=== PATIENT | male | born 1965 | race Caucasian/White ===

== ENCOUNTER 2016-09-13 20:57 | Observation (INO) | payer OTHER ==
[2016-09-13] MEDS ORDERED: HYDROmorphone* 1 MG/ML 1 ML SYR IV ONE ×2 (21:25→23:19)
[2016-09-13] MEDS ORDERED: Ondansetron INJ* 2 MG/ML VIAL IV ONE (21:25)
[2016-09-13] MEDS ORDERED: NS 0.9% 1000 ML* 1,000 ML IV ONE (21:25)
[2016-09-13] MEDS ORDERED: Ondansetron INJ* 2 MG/ML VIAL ONE (21:42)
[2016-09-13 21:44] LABS: Hematocrit 44 % (42-52); Hemoglobin 14.8 g/dl (14.0-18.0); Mean Corpuscular HGB Conc 34 g/dl (31-36); Mean Corpuscular Hemoglobin 34 pg (27-31); Mean Corpuscular Volume 100 fL (80-94); Mean Platelet Volume 8 um3 (7.4-10.4); Red Blood Count 4.37 10^6/ul (4.0-5.4); Red Cell Distribution Width 13 % (10.5-15); White Blood Count 13.6 10^3/ul (3.5-10.8)
[2016-09-13 21:58] LABS: BUN/Creatinine Ratio 17.4 (8-20); Blood Urea Nitrogen 15 mg/dL (6-24); CO2 Carbon Dioxide 22 mmol/L (22-32); Chloride 107 mmol/L (101-111); Glucose 114 mg/dL (70-100); Sodium 137 mmol/L (133-145)
[2016-09-13 21:59] LABS: ALT 29 U/L (7-52); Albumin 4.3 g/dL (3.2-5.2); Alkaline Phosphatase 69 U/L (34-104); C Reactive Protein 1.43 mg/L (< 5.00); Calcium 9.4 mg/dL (8.6-10.3); EGFR African American 121.1 (>60); EGFR Non-African American 94.1 (>60); Lipase 24 U/L (11.0-82.0); Total Protein 7.3 g/dL (6.4-8.9)
[2016-09-13 22:00] LABS: Anion Gap 8 mmol/L (2-11)
[2016-09-13] MEDS ORDERED: Iohexol 300* (CONTRAST) 10 ML SDV IV ONE (22:13)
--- NOTE | 2016-09-13 22:52 | ED ---
Clarisa Sanchez Salem, scribed for Caio Hawk MD on 09/13/16 at 2125 . Abdominal Pain/Male - HPI Summary HPI Summary: Patient is a 50 y/o M who presents to the ED with diffuse intermittent waxing and waning sudden onset abd pain since 1300 this morning. Pt reports PMHx of diverticulosis. He states that ambulance ride aggravated pain. - History of Current Complaint Chief Complaint: EDAbdPain Stated Complaint: ABD PAIN Time Seen by Provider: 09/13/16 21:16 Hx Obtained From: Patient Onset/Duration: Sudden Onset, Lasting Hours, Still Present Timing: Intermittent Severity Initially: Moderate Severity Currently: Moderate Location: Diffuse Radiates: No Aggravating Factor(s): Movement Alleviating Factor(s): Position Associated Signs And Symptoms: Positive: Negative - Allergies/Home Medications Allergies/Adverse Reactions: Allergies Allergy/AdvReac Type Severity Reaction Status Date / Time Penicillins [PCN] Allergy Intermediate Rash Verified 12/06/15 15:09 PMH/Surg Hx/FS Hx/Imm Hx Endocrine/Hematology History: Denies: Hx Diabetes, Hx Thyroid Disease Cardiovascular History: Denies: Hx Hypertension Respiratory History: Reports: Hx Asthma - use inhaler and neb Denies: Hx Chronic Obstructive Pulmonary Disease (COPD) Comment Only: Other Respiratory Problems/Disorders - deenies need for written literature to quit GI History: Reports: Hx Diverticulosis, Other GI Disorders - diveriticulitis Denies: Hx Ulcer History: Denies: Hx Dialysis, Hx Renal Disease Musculoskeletal History: Reports: Hx Back Problems, Other Musculoskeletal History - Back pain Sensory History: Reports: Hx Contacts or Glasses Opthamlomology History: Reports: Hx Contacts or Glasses Neurological History: Reports: Hx Migraine, Other Neuro Impairments/Disorders - HX SUBDURAL HEMATOMA UNKNOWN DATE - Cancer History Cancer Type, Location and Year: FAMILY HISTORY - Surgical History Surgery Procedure, Year, and Place: Anal abscess drainage 89, 04, tonsillectomy , colonoscopy Hx Anesthesia Reactions: No Infectious Disease History: Denies: Hx Clostridium Difficile, Hx Hepatitis, Hx Human Immunodeficiency Virus (HIV), Hx of Known/Suspected MRSA, Hx Shingles, Hx Tuberculosis, Hx Known/ Suspected VRE, Hx Known/Suspected VRSA, History Other Infectious Disease, Traveled Outside the [place] in Last 30 Days - Family History Known Family History: Positive: Cardiac Disease - PATERNAL UNCLE, Other - CANCER - Social History Alcohol Use: Daily Alcohol Amount: a few beers daily Hx Substance Use: No Substance Use Type: Reports: None Substance Use Comment - Amount & Last Used: pain killers - migraines Hx Tobacco Use: Yes Smoking Status (MU): Light Every Day Tobacco Smoker Type: Cigarettes Amount Used/How Often: 3-4 cigs daily Length of Time of Smoking/Using Tobacco: 15 yrs Have You Smoked in the Last Year: Yes Review of Systems Constitutional: Negative Negative: Fever Positive: Abdominal Pain All Other Systems Reviewed And Are Negative: Yes Physical Exam Triage Information Reviewed: Yes Vital Signs On Initial Exam: Last Vital Signs 09/13/16 09/13/16 09/13/16 21:22 21:30 21:45 Temperature 97.6 F Pulse Rate 78 81 93 Respiratory 16 Rate Blood Pressure 157/104 126/82 (mmHg) O2 Sat by Pulse 100 100 98 Oximetry 09/13/16 09/13/16 21:46 22:00 Temperature Pulse Rate Respiratory 18 Rate Blood Pressure 126/82 (mmHg) O2 Sat by Pulse Oximetry Vital Signs Reviewed: Yes Appearance: Positive: Well-Appearing, No Pain Distress Skin: Positive: Warm, Skin Color Reflects Adequate Perfusion, Dry Head/Face: Positive: Normal Head/Face Inspection Eyes: Positive: Normal Neck: Positive: Supple, Nontender Respiratory/Lung Sounds: Positive: Clear to Auscultation, Breath Sounds Present Cardiovascular: Positive: RRR Abdomen Description: Positive: Guarding, Other: - Very tender, profusely. Rebound. Bowel Sounds: Positive: Present Musculoskeletal: Positive: Normal Neurological: Positive: Normal Psychiatric: Positive: Normal, Affect/Mood Appropriate Diagnostics - Vital Signs Vital Signs Temp Pulse Resp BP Pulse Ox 09/13/16 22:00 126/82 09/13/16 21:46 18 09/13/16 21:45 97.6 F 93 16 126/82 98 09/13/16 21:30 81 157/104 100 09/13/16 21:22 78 100 - Laboratory Lab Results: Lab Results 09/13/16 09/13/16 09/13/16 Range/Units 21:37 21:37 22:12 WBC 13.6 H (3.5-10.8) 10^3/ul RBC 4.37 (4.0-5.4) 10^6/ul Hgb 14.8 (14.0-18.0) g/dl Hct 44 (42-52) % MCV 100 H (80-94) fL MCH 34 H (27-31) pg MCHC 34 (31-36) g/dl RDW 13 (10.5-15) % Plt Count 261 (150-450) 10^3/ul MPV 8 (7.4-10.4) um3 Neut % (Auto) 74.1 (38-83) % Lymph % (Auto) 16.9 L (25-47) % King % (Auto) 7.2 (1-9) % Eos % (Auto) 1.2 (0-6) % Baso % (Auto) 0.6 (0-2) % Absolute Neuts (auto) 10.1 H (1.5-7.7) 10^3/ul Absolute Lymphs (auto) 2.3 (1.0-4.8) 10^3/ul Absolute Monos (auto) 1.0 H (0-0.8) 10^3/ul Absolute Eos (auto) 0.2 (0-0.6) 10^3/ul Absolute Basos (auto) 0.1 (0-0.2) 10^3/ul Absolute Nucleated RBC 0 10^3/ul Nucleated RBC % 0 Sodium 137 (133-145) mmol/L Potassium TNP Chloride 107 (101-111) mmol/L Carbon Dioxide 22 (22-32) mmol/L Anion Gap 8 (2-11) mmol/L BUN 15 (6-24) mg/dL Creatinine 0.86 (0.67-1.17) mg/dL Est GFR ( Amer) 121.1 (>60) Est GFR (Non-Af Amer) 94.1 (>60) BUN/Creatinine Ratio 17.4 (8-20) Glucose 114 H (70-100) mg/dL Lactic Acid 0.7 (0.5-2.0) mmol/L Calcium 9.4 (8.6-10.3) mg/dL Total Bilirubin 0.80 (0.2-1.0) mg/dL AST TNP ALT 29 (7-52) U/L Alkaline Phosphatase 69 (34-104) U/L C-Reactive Protein 1.43 (< 5.00) mg/L Total Protein 7.3 (6.4-8.9) g/dL Albumin 4.3 (3.2-5.2) g/dL Globulin 3.0 (2-4) g/dL Albumin/Globulin Ratio 1.4 (1-3) Lipase 24 (11.0-82.0) U/L /09/23 Range/Units 22:12 WBC (3.5-10.8) 10^3/ul RBC (4.0-5.4) 10^6/ul Hgb (14.0-18.0) g/dl Hct (42-52) % MCV (80-94) fL MCH (27-31) pg MCHC (31-36) g/dl RDW (10.5-15) % Plt Count (150-450) 10^3/ul MPV (7.4-10.4) um3 Neut % (Auto) (38-83) % Lymph % (Auto) (25-47) % King % (Auto) (1-9) % Eos % (Auto) (0-6) % Baso % (Auto) (0-2) % Absolute Neuts (auto) (1.5-7.7) 10^3/ul Absolute Lymphs (auto) (1.0-4.8) 10^3/ul Absolute Monos (auto) (0-0.8) 10^3/ul Absolute Eos (auto) (0-0.6) 10^3/ul Absolute Basos (auto) (0-0.2) 10^3/ul Absolute Nucleated RBC 10^3/ul Nucleated RBC % Sodium (133-145) mmol/L Potassium 3.6 Chloride (101-111) mmol/L Carbon Dioxide (22-32) mmol/L Anion Gap (2-11) mmol/L BUN (6-24) mg/dL Creatinine (0.67-1.17) mg/dL Est GFR ( Amer) (>60) Est GFR (Non-Af Amer) (>60) BUN/Creatinine Ratio (8-20) Glucose (70-100) mg/dL Lactic Acid (0.5-2.0) mmol/L Calcium (8.6-10.3) mg/dL Total Bilirubin (0.2-1.0) mg/dL AST 24 ALT (7-52) U/L Alkaline Phosphatase (34-104) U/L C-Reactive Protein (< 5.00) mg/L Total Protein (6.4-8.9) g/dL Albumin (3.2-5.2) g/dL Globulin (2-4) g/dL Albumin/Globulin Ratio (1-3) Lipase (11.0-82.0) U/L Result Diagrams: 09/13/16 21:37 09/13/16 22:12 Lab Statement: Any lab studies that have been ordered have been reviewed, and results considered in the medical decision making process. - CT ABD/PELVIS CT Interpretation Completed By: Radiologist - IMPRESSION: see EMR pending radiology reading. Abdominal Pain Fem Course/Dx - Course Course Of Treatment: Mr. Witt presented with seemingly severe diffuse abdominal pain. HE was tender diffusely with guarding and rebound. He was given fluids and pain meds, labs have been sent and he is awaiting CT. His vitals have been stable. - Diagnoses Provider Diagnoses: Abdominal pain Discharge - Discharge Plan Condition: Stable Disposition: OTHER Discharge Disposition Comment: Signed out to Dr. Young at shift change. Referrals: Colin Jewell MD [Primary Care Provider] - The documentation as recorded by the Clarisa whyte Salem accurately reflects the service I personally performed and the decisions made by me, Caio Hawk MD.
[2016-09-14] MEDS ORDERED: HYDROmorphone* 1 MG/ML 1 ML SYR IV SLOW PU ONE (02:07)
[2016-09-14] MEDS ORDERED: Ondansetron INJ* 2 MG/ML VIAL IV ONE (02:07)
--- NOTE | 2016-09-14 02:30 | HP ---
H&P (Free Text) History and Physical: PCP: Ron Jewell MD Date/Time of Evaluation: 4185 CC: abdominal pain HPI: Mr Witt is a 50YO male HX diverticulitis presenting with LLQ abdominal pain onset quickly around 1900. The pain is sharp, worst in LLQ, associated with some mild nausea, but no F/C, diarrhea, emesis, sweats, chest pain, SOB, or other issues. He states he had a normal bowel movement before lunch and another small one around 1700 that time with a small amount of bright red blood on the toilet tissue, but no black stool or discoloration of toilet water. He has received 3 doses of IV hydromorphone which take his pain from a sharp 10/10 to a dull 5/10. Palpation and movement exacerbate the pain. PMedHx diverticulosis/diverticulitis asthma HTN migraines Ambulatory Orders Nursing to reconcile. HYDROcodone/ACETAMIN 5-325 MG* [[place] 5-325 TAB*] 1 tab PO Q4H PRN #12 tab MDD 6 tab 08/20/15 Albuterol 2.5MG/3ML (0.083%)* [Ventolin 2.5 MG/3 ML NEB.ALISIA*] 2.5 mg INH Q4H PRN 12/06/15 Albuterol HFA INHALER* [Ventolin HFA Inhaler*] 2 puff INH Q4H PRN 12/06/15 Azithromycin TAB* [Zithromax TAB (Z-MILTON) 250 mg #6 tabs] 250 mg PO ONCE #4 tab 12/06/15 Ibuprofen TAB* [Advil TAB*] 400 mg PO Q6H PRN 12/06/15 oxyCODONE/Acetamin 5/325 MG* [Percocet 5/325 TAB*] 1 tab PO Q4H PRN #15 tab MDD 6 12/06/15 predniSONE TAB* [Deltasone TAB*] 40 mg PO DAILY #8 tab 12/06/15 Allergies Penicillins [PCN] Allergy (Intermediate, Verified 12/06/15 15:09) Rash PSurgHx I&D bahman-rectal abscess x2 SocHx: 1/4PPD cigarettes, minimal alcohol, denies recreational drugs; lives with his female significant other; works for [employer]; full code status FamHx: Mother: colon CA; Father: alcoholic cirrhosis ROS: as above, otherwise reviewed and all were negative Constitutional: NAD, normally developed, well-nourished male vitals: Vital Signs Temp 36.4 C 09/13/16 21:45 Pulse 77 09/14/16 02:00 Resp 15 09/14/16 02:18 BP 135/95 09/14/16 02:00 Pulse Ox 98 09/14/16 02:00 Intake & Output 09/13/16 09/13/16 09/14/16 11:59 23:59 11:59 Weight 74.843 kg Other: Date of Last Bowel t Movement HEENM: atraumatic; sclera/conjunctiva: non-icteric/clear; hearing: clinically intact; oropharynx: clear, mucosa moist Neck: soft tissue: non-tender; thyroid: normal Pulmonary: clear to auscultation bilaterally, good aeration, no accessory muscle use CV: RR/RR, normal S1S2, no carotid bruit, no jugular venous distention, 2+ B DP/ PT, no edema Abdominal: soft, non-distended, diffusely moderately tender worst in LLQ, no rebound/guarding/rigidity, normoactive bowel sounds, no hepatosplenomegaly or masses, no costovertebral angle tenderness Musculoskeletal: general: grossly intact; gait: stable Integumental: normal appearance and texture of exposed skin Psychiatric orientation: AA&O to PPS affect: calm mood: cooperative eye contact: good content: reliable responses: timely insight: good Testing: Lab Results 09/13/16 09/13/16 09/13/16 Range/Units 21:37 21:37 22:12 WBC 13.6 H (3.5-10.8) 10^3/ul RBC 4.37 (4.0-5.4) 10^6/ul Hgb 14.8 (14.0-18.0) g/dl Hct 44 (42-52) % MCV 100 H (80-94) fL MCH 34 H (27-31) pg MCHC 34 (31-36) g/dl RDW 13 (10.5-15) % Plt Count 261 (150-450) 10^3/ul MPV 8 (7.4-10.4) um3 Neut % (Auto) 74.1 (38-83) % Lymph % (Auto) 16.9 L (25-47) % [place] % (Auto) 7.2 (1-9) % Eos % (Auto) 1.2 (0-6) % Baso % (Auto) 0.6 (0-2) % Absolute Neuts (auto) 10.1 H (1.5-7.7) 10^3/ul Absolute Lymphs (auto) 2.3 (1.0-4.8) 10^3/ul Absolute Monos (auto) 1.0 H (0-0.8) 10^3/ul Absolute Eos (auto) 0.2 (0-0.6) 10^3/ul Absolute Basos (auto) 0.1 (0-0.2) 10^3/ul Absolute Nucleated RBC 0 10^3/ul Nucleated RBC % 0 Sodium 137 (133-145) mmol/L Potassium TNP Chloride 107 (101-111) mmol/L Carbon Dioxide 22 (22-32) mmol/L Anion Gap 8 (2-11) mmol/L BUN 15 (6-24) mg/dL Creatinine 0.86 (0.67-1.17) mg/dL Est GFR ( Amer) 121.1 (>60) Est GFR (Non-Af Amer) 94.1 (>60) BUN/Creatinine Ratio 17.4 (8-20) Glucose 114 H (70-100) mg/dL Lactic Acid 0.7 (0.5-2.0) mmol/L Calcium 9.4 (8.6-10.3) mg/dL Total Bilirubin 0.80 (0.2-1.0) mg/dL AST TNP ALT 29 (7-52) U/L Alkaline Phosphatase 69 (34-104) U/L C-Reactive Protein 1.43 (< 5.00) mg/L Total Protein 7.3 (6.4-8.9) g/dL Albumin 4.3 (3.2-5.2) g/dL Globulin 3.0 (2-4) g/dL Albumin/Globulin Ratio 1.4 (1-3) Lipase 24 (11.0-82.0) U/L 09/13/16 Range/Units 22:12 WBC (3.5-10.8) 10^3/ul RBC (4.0-5.4) 10^6/ul Hgb (14.0-18.0) g/dl Hct (42-52) % MCV (80-94) fL MCH (27-31) pg MCHC (31-36) g/dl RDW (10.5-15) % Plt Count (150-450) 10^3/ul MPV (7.4-10.4) um3 Neut % (Auto) (38-83) % Lymph % (Auto) (25-47) % [place] % (Auto) (1-9) % Eos % (Auto) (0-6) % Baso % (Auto) (0-2) % Absolute Neuts (auto) (1.5-7.7) 10^3/ul Absolute Lymphs (auto) (1.0-4.8) 10^3/ul Absolute Monos (auto) (0-0.8) 10^3/ul Absolute Eos (auto) (0-0.6) 10^3/ul Absolute Basos (auto) (0-0.2) 10^3/ul Absolute Nucleated RBC 10^3/ul Nucleated RBC % Sodium (133-145) mmol/L Potassium 3.6 Chloride (101-111) mmol/L Carbon Dioxide (22-32) mmol/L Anion Gap (2-11) mmol/L BUN (6-24) mg/dL Creatinine (0.67-1.17) mg/dL Est GFR ( Amer) (>60) Est GFR (Non-Af Amer) (>60) BUN/Creatinine Ratio (8-20) Glucose (70-100) mg/dL Lactic Acid (0.5-2.0) mmol/L Calcium (8.6-10.3) mg/dL Total Bilirubin (0.2-1.0) mg/dL AST 24 ALT (7-52) U/L Alkaline Phosphatase (34-104) U/L C-Reactive Protein (< 5.00) mg/L Total Protein (6.4-8.9) g/dL Albumin (3.2-5.2) g/dL Globulin (2-4) g/dL Albumin/Globulin Ratio (1-3) Lipase (11.0-82.0) U/L CT abd/pel W, personally reviewed: IMPRESSION: Questionable mild small bowel ileus. Impression: 50M presenting with intractable abdominal pain of unclear etiology DIAGNOSIS & PLAN Primary intractable abdominal pain : HX diverticulitis, NOT seen on current CT abd/pel W - only ? ileus, awaiting in-house read : pain control : no indication for ABX at this time : IVFs : trend leukocytosis : Meli Puente MD surgery aware of patient, but not consulted as no surgical indication currently : supportive care Secondary asthma : albuterol nebs PRN HTN : not currently on medications : monitor migraines : no acute issues Admission Rational: observation for intractable pain DVTp: PEPE Code Status: full HCP: significant other: Elicia Starkey
[2016-09-14] MEDS ORDERED: Ondansetron INJ* 2 MG/ML VIAL IV PRN (02:53)
[2016-09-14] MEDS ORDERED: Acetaminophen TAB* 325 MG PO PRN (02:53)
[2016-09-14] MEDS ORDERED: Nicotine Inhaler* 10 MG AMP INH PRN (02:53)
[2016-09-14] MEDS ORDERED: Melatonin (NF) 3 MG TAB PO PRN (02:53)
[2016-09-14] MEDS ORDERED: Albuterol 2.5 MG/3 ML NEB.SOL* (0.083%) INH PRN (02:53)
[2016-09-14 03:42] LABS: Urine Bilirubin Negative (Negative); Urine Glucose Negative (Negative); Urine Nitrite Negative (Negative)
[2016-09-14] MEDS: HYDROmorphone* 1 MG/ML 1 ML SYR IV PRN ×4 (04:07→10:08)
[2016-09-14 05:10] LABS: Hematocrit 40 % (42-52); Hemoglobin 13.2 g/dl (14.0-18.0); Mean Corpuscular HGB Conc 33 g/dl (31-36); Mean Corpuscular Hemoglobin 34 pg (27-31); Mean Corpuscular Volume 101 fL (80-94); Mean Platelet Volume 8 um3 (7.4-10.4); Red Blood Count 3.91 10^6/ul (4.0-5.4); Red Cell Distribution Width 13 % (10.5-15); White Blood Count 10.2 10^3/ul (3.5-10.8)
[2016-09-14] MEDS: Omeprazole CAP* 20 MG PO SCH (06:03)
--- NOTE | 2016-09-14 08:00 | RAD ---
CLINICAL HISTORY: Diffuse abdominal pain COMPARISON: December 06, 2015 TECHNIQUE: Multiple contiguous axial CT scans were obtained of the abdomen and pelvis after the administration of intravenous contrast. Coronal and sagittal multiplanar reformations are submitted for review. Oral contrast was administered. Delayed images were obtained through the abdomen and pelvis. FINDINGS: LUNG BASES: The lung bases are clear. LIVER: There is a stable small low-attenuation lesion of the right lobe of liver. BILE DUCTS: There is no intrahepatic or extrahepatic biliary dilatation. GALLBLADDER: The gallbladder is normal, without pericholecystic inflammatory change. PANCREAS: The pancreas is normal, without mass or ductal dilatation. SPLEEN: Normal in size and appearance. UPPER GI TRACT: Evaluation of the gastrointestinal tract is limited by incomplete gastric distention. The upper GI tract is unremarkable. SMALL BOWEL AND MESENTERY: There is mild distention of small bowel without transition point, without dilatation. COLON: The colon is normal in contour, course, caliber. There is no pericolonic inflammatory change. There is a tubular, vermiform, hollow viscus that is blind ending, and originates from the cecum, consistent with a normal appendix. There is no periappendiceal inflammatory change. This is best seen on axial images 42 through 50 ADRENALS: Normal bilaterally. KIDNEYS: The kidneys are normal in shape, size, contour, and axis. There is no hydronephrosis or nephrolithiasis. BLADDER: The bladder is smooth in contour. PELVIC ORGANS: The prostate gland is normal. The seminal vesicles are symmetric. AORTA: The aorta is normal. IVC: Unremarkable LYMPH NODES: There is no lymphadenopathy by size criteria. ABDOMINAL WALL: There is no evidence for abdominal wall hernia. BONES AND SOFT TISSUES: There are mild diffuse degenerative changes. OTHER: None IMPRESSION: MILD DISTENTION OF SMALL BOWEL WITHOUT DILATATION OR TRANSITION POINT. THIS IS OF UNCERTAIN CLINICAL SIGNIFICANCE, BUT MAY REFLECT MILD ILEUS.
[2016-09-14] MEDS: Docusate CAP* 100 MG PO SCH ×2 (08:13→20:41)
--- NOTE | 2016-09-14 10:25 | ED ---
Judson Sanchez Rebecca, debbie for Ester Young MD on 09/14/16 at 0134 . Progress - Progress Note Progress Note: Pt was signed out from Dr. Hawk at 2300, pending CT Abd/Pel. CT Abd/Pel reveals: Questionable mild small bowel ileus. Re-Evaluation - Re-Evaluation First Eval Re-Evaluation Time: 02:00 Change: Improved Comment: Thoroughly explained CT Abd/Pel results with the pt and that the results are a preliminary report. Explained that typically patients with similar Dx are admitted. Pt confirms that he has not been vomiting. Pain is significantly improved from where it was previously, though it is still severe. Pt states he would favor admission, though he does not want surgery. Explained that a consult with the surgeon must be done first. Course/Dx - Course Course Of Treatment: Pt was signed out from Dr. Hawk at 2300. CT Abd/Pel reveals questionable mild small bowel ileus. Discussed care of pt with Dr. Puente who advised admission to hospitalist services and will consult in the morning. Discussed care of pt with Dr. Hari Taylor who accepts pt for admission. Pt will be admitted to hospitalist services with Dx of abdominal pain and ileus of small bowel. - Diagnoses Provider Diagnoses: Abdominal pain, Small bowel Ileus - Provider Notifications Discussed Care Of Patient With: Niko Puente Time Discussed With Above Provider: 02:08 Instructed by Provider To: Other - Advised admission to hospitalist services and will consult in the morning. Discussed care of pt with Dr. Hari Taylor at 0213 who accepts pt for admission. The documentation as recorded by the Judson whyte Rebecca accurately reflects the service I personally performed and the decisions made by , Ester Young MD.
[2016-09-14] MEDS ORDERED: Ciprofloxacin 400MG IVPREMIX(* 400 MG/200 ML BAG IVPB SCH (12:00)
--- NOTE | 2016-09-14 12:04 | PN ---
Subjective Date of Service: 09/14/16 Interval History: Little if any change in lower abdominal pain. Relieved by IV hydromorphone. No BM since admission. Objective Active Medications: Acetaminophen (Tylenol Tab*) 650 mg PO Q6H PRN PRN Reason: FEVER/PAIN Albuterol (Ventolin 2.5 Mg/3 Ml Neb.Marichuy*) 2.5 mg INH Q2H PRN PRN Reason: SOB/WHEEZING Docusate Sodium (Colace Cap*) 200 mg PO BID [facility] Last Admin: 09/14/16 08:13 Dose: 200 mg Hydromorphone HCl (Dilaudid Iv*) 1 mg IV Q2H PRN PRN Reason: PAIN Last Admin: 09/14/16 10:08 Dose: 1 mg Ciprofloxacin/Dextrose (Cipro 400 Mg Ivpremix(*)) 400 mg in 200 mls @ 200 mls/ hr IVPB Q12H [facility] Metronidazole/Sodium Chloride (Flagyl 500 Mg Ivpb*) 500 mg in 100 mls @ 100 mls /hr IVPB Q8H [facility] Potassium Chloride/Dextrose (D5w 1/2 Ns Kcl 20 Meq 1000 Ml*) 1,000 mls @ 100 mls/hr IV PER RATE [facility] Melatonin (Melatonin (Nf)) 3 mg PO BEDTIME PRN; Protocol PRN Reason: Sleep Nicotine (Nicotine Inhaler*) 10 mg INH Q2H PRN PRN Reason: CRAVING Omeprazole (Prilosec Cap*) 20 mg PO DAILY@0600 [facility] Last Admin: 09/14/16 06:03 Dose: 20 mg Ondansetron HCl (Zofran Inj*) 4 mg IV Q6H PRN PRN Reason: NAUSEA Vital Signs 09/14/16 09/14/16 09/14/16 02:30 03:32 03:57 Temperature 97.8 F Pulse Rate 76 73 Respiratory 20 20 Rate Blood Pressure 128/94 153/93 (mmHg) O2 Sat by Pulse 95 99 Oximetry 09/14/16 09/14/16 09/14/16 04:07 04:20 05:07 Temperature 97.8 F Pulse Rate 73 Respiratory 20 20 16 Rate Blood Pressure 153/93 (mmHg) O2 Sat by Pulse 99 Oximetry 09/14/16 09/14/16 09/14/16 06:04 07:04 07:16 Temperature 97.9 F Pulse Rate 73 Respiratory 20 17 17 Rate Blood Pressure 137/94 (mmHg) O2 Sat by Pulse 99 Oximetry 09/14/16 09/14/16 09/14/16 07:52 08:13 09:13 Temperature Pulse Rate Respiratory 17 16 16 Rate Blood Pressure (mmHg) O2 Sat by Pulse Oximetry 09/14/16 09/14/16 09/14/16 10:08 11:08 11:27 Temperature 97.4 F Pulse Rate 71 Respiratory 16 16 Rate Blood Pressure 142/93 (mmHg) O2 Sat by Pulse 100 Oximetry Oxygen Devices in Use Now: None Appearance: Alert, partly up in bed. In good spirits. Looks comfortable. Eyes: No Scleral Icterus Ears/Nose/Mouth/Throat: Clear Oropharnyx, Mucous Membranes Moist Neck: NL Appearance and Movements; NL JVP, No Thyroid Enlargement, Masses Respiratory: Symmetrical Chest Expansion and Respiratory Effort, Clear to Auscultation, Clear to Percussion Abdominal: No Hepatosplenomegaly, - - Soft, mild lower abdominal tenderness. Nl BS. No mass. Extremities: No Edema, No Clubbing, Cyanosis, - Skin: No Rash or Ulcers, No Nodules or Sclerosis, - Neurological: Alert and Oriented x 3, NL Sensation Result Diagrams: 09/14/16 04:25 09/13/16 22:12 Additional Lab and Data: Lab Results 09/13/16 09/13/16 09/13/16 Range/Units 21:37 21:37 22:12 WBC 13.6 H (3.5-10.8) 10^3/ul RBC 4.37 (4.0-5.4) 10^6/ul Hgb 14.8 (14.0-18.0) g/dl Hct 44 (42-52) % MCV 100 H (80-94) fL MCH 34 H (27-31) pg MCHC 34 (31-36) g/dl RDW 13 (10.5-15) % Plt Count 261 (150-450) 10^3/ul MPV 8 (7.4-10.4) um3 Neut % (Auto) 74.1 (38-83) % Lymph % (Auto) 16.9 L (25-47) % [place] % (Auto) 7.2 (1-9) % Eos % (Auto) 1.2 (0-6) % Baso % (Auto) 0.6 (0-2) % Absolute Neuts (auto) 10.1 H (1.5-7.7) 10^3/ul Absolute Lymphs (auto) 2.3 (1.0-4.8) 10^3/ul Absolute Monos (auto) 1.0 H (0-0.8) 10^3/ul Absolute Eos (auto) 0.2 (0-0.6) 10^3/ul Absolute Basos (auto) 0.1 (0-0.2) 10^3/ul Absolute Nucleated RBC 0 10^3/ul Nucleated RBC % 0 Sodium 137 (133-145) mmol/L Potassium TNP Chloride 107 (101-111) mmol/L Carbon Dioxide 22 (22-32) mmol/L Anion Gap 8 (2-11) mmol/L BUN 15 (6-24) mg/dL Creatinine 0.86 (0.67-1.17) mg/dL Est GFR ( Amer) 121.1 (>60) Est GFR (Non-Af Amer) 94.1 (>60) BUN/Creatinine Ratio 17.4 (8-20) Glucose 114 H (70-100) mg/dL Lactic Acid 0.7 (0.5-2.0) mmol/L Calcium 9.4 (8.6-10.3) mg/dL Total Bilirubin 0.80 (0.2-1.0) mg/dL AST TNP ALT 29 (7-52) U/L Alkaline Phosphatase 69 (34-104) U/L C-Reactive Protein 1.43 (< 5.00) mg/L Total Protein 7.3 (6.4-8.9) g/dL Albumin 4.3 (3.2-5.2) g/dL Globulin 3.0 (2-4) g/dL Albumin/Globulin Ratio 1.4 (1-3) Lipase 24 (11.0-82.0) U/L 09/13/16 Range/Units 22:12 WBC (3.5-10.8) 10^3/ul RBC (4.0-5.4) 10^6/ul Hgb (14.0-18.0) g/dl Hct (42-52) % MCV (80-94) fL MCH (27-31) pg MCHC (31-36) g/dl RDW (10.5-15) % Plt Count (150-450) 10^3/ul MPV (7.4-10.4) um3 Neut % (Auto) (38-83) % Lymph % (Auto) (25-47) % [place] % (Auto) (1-9) % Eos % (Auto) (0-6) % Baso % (Auto) (0-2) % Absolute Neuts (auto) (1.5-7.7) 10^3/ul Absolute Lymphs (auto) (1.0-4.8) 10^3/ul Absolute Monos (auto) (0-0.8) 10^3/ul Absolute Eos (auto) (0-0.6) 10^3/ul Absolute Basos (auto) (0-0.2) 10^3/ul Absolute Nucleated RBC 10^3/ul Nucleated RBC % Sodium (133-145) mmol/L Potassium 3.6 Chloride (101-111) mmol/L Carbon Dioxide (22-32) mmol/L Anion Gap (2-11) mmol/L BUN (6-24) mg/dL Creatinine (0.67-1.17) mg/dL Est GFR ( Amer) (>60) Est GFR (Non-Af Amer) (>60) BUN/Creatinine Ratio (8-20) Glucose (70-100) mg/dL Lactic Acid (0.5-2.0) mmol/L Calcium (8.6-10.3) mg/dL Total Bilirubin (0.2-1.0) mg/dL AST 24 ALT (7-52) U/L Alkaline Phosphatase (34-104) U/L C-Reactive Protein (< 5.00) mg/L Total Protein (6.4-8.9) g/dL Albumin (3.2-5.2) g/dL Globulin (2-4) g/dL Albumin/Globulin Ratio (1-3) Lipase (11.0-82.0) U/L Assess/Plan/Problems-Billing Assessment: - Patient Problems (1) Diverticulitis Current Visit: No Status: Acute Priority: High Onset Date: 04/18/14 Comment: Hx of perhaps 4 prior episodes diverticulitis. Colocoscopy at [facility] in past showed diverticulosis, also had tubular adenoma resected. Although the pain location seems different to the patient, it may simply be that a different area of his colon is involved than before. Start cipro/metro . If he responds to this he can go home on oral antibiotics. (2) Sepsis Current Visit: No Status: Acute Priority: High Onset Date: 01/27/14 Comment: - Secondary to diverticulitis. - Improving - afebrile, tachycardia is resolved. (3) Tobacco abuse Current Visit: No Status: Acute Code(s): Z72.0 - TOBACCO USE SNOMED Code(s ): 491428235 Comment: - Continue nicotine inhaler PRN Pt advised to quit smoking and avoid second hand smoke. (4) Asthma Current Visit: No Status: Chronic Code(s): J45.909 - UNSPECIFIED ASTHMA, UNCOMPLICATED SNOMED Code(s): 437806982 Comment: Albuterol neb PRN.
[2016-09-14] MEDS: Morphine INJ* 4 MG/ML 1 ML SYRINGE IV PRN ×4 (12:18→21:30)
[2016-09-14] MEDS: D5W 1/2 NS KCl 20 Meq 1000 ML* 1,000 ML IV SCH (12:18)
[2016-09-14] MEDS: metroNIDAZOLE IV 500 MG/100ML* 500 MG/100 ML BAG IVPB SCH ×2 (12:19→20:41)
[2016-09-14] MEDS: Ciprofloxacin 400MG IVPREMIX(* 400 MG/200 ML BAG IVPB SCH (15:12)
[2016-09-15] MEDS: Morphine INJ* 4 MG/ML 1 ML SYRINGE IV PRN ×2 (01:02→04:09)
[2016-09-15] MEDS: D5W 1/2 NS KCl 20 Meq 1000 ML* 1,000 ML IV SCH (02:38)
[2016-09-15] MEDS: Ciprofloxacin 400MG IVPREMIX(* 400 MG/200 ML BAG IVPB SCH (02:38)
[2016-09-15] MEDS ORDERED: Morphine INJ* 2 MG/ML 1 ML SYRINGE IV ONE (02:50)
[2016-09-15] MEDS: metroNIDAZOLE IV 500 MG/100ML* 500 MG/100 ML BAG IVPB SCH ×2 (04:23→12:06)
[2016-09-15] MEDS: Omeprazole CAP* 20 MG PO SCH (06:38)
[2016-09-15] MEDS ORDERED: Morphine INJ* 10 MG/ML 1 ML SYRINGE ONE (07:23)
[2016-09-15] MEDS ORDERED: Morphine INJ* 2 MG/ML 1 ML SYRINGE IV PRN (07:25)
[2016-09-15] MEDS ORDERED: Morphine INJ* 10 MG/ML 1 ML SYRINGE IV PRN ×2 (07:26→07:27)
[2016-09-15] MEDS ORDERED: Morphine INJ* 10 MG/ML 1 ML SYRINGE IV ONE (09:10)
[2016-09-15] MEDS: Docusate CAP* 100 MG PO SCH (09:18)
--- NOTE | 2016-09-15 09:35 | RAD ---
HISTORY: Abdominal pain COMPARISONS: CT dated September 13, 2016 VIEWS: Frontal views of the abdomen. FINDINGS: BOWEL: There is a nonobstructive bowel gas pattern. Oral contrast is noted within the colon CALCULI: There are no abnormal calculi. BONES AND SOFT TISSUES: There are no osseous abnormalities. OTHER FINDINGS: The lung bases are clear. There is no subphrenic gas. IMPRESSION: NONOBSTRUCTIVE BOWEL GAS PATTERN. ORAL CONTRAST IS NOTED WITHIN THE COLON.
[2016-09-15 12:17] VITALS: BP 130/83
[2016-09-15] MEDS ORDERED: Morphine INJ* 4 MG/ML 1 ML SYRINGE IV PRN (15:00)
--- NOTE | 2016-09-15 15:01 | PN ---
"Progress Note - Progress Note Date of Service: 09/15/16 Note: Search Terms: adelso gee, 1965 Search Date: 09/15/2016 02:59:07 PM The Drug Utilization Report below displays all of the controlled substance prescriptions, if any, that your patient has filled in the last twelve months. The information displayed on this report is compiled from pharmacy submissions to the Department, and accurately reflects the information as submitted by the pharmacies. This report was requested by: Tay Cueva | Reference #: [id number] Others' Prescriptions Patient Name: Adelso Gee Date: 1965 Address: [address] [place] [address] Sex: Male Rx Written Rx Dispensed Drug Quantity Days Supply Prescriber Name 12/06/2015 12/07/2015 oxycodone-acetaminophen 5-325 mg tablet 15 3 Rodo Kiser MD"
--- NOTE | 2016-09-16 03:52 | DS ---
CC: Dr. Jewell * DISCHARGE SUMMARY: DATE OF ADMISSION: DATE OF DISCHARGE: 09/15/16 HISTORY: This 50-year-old man presented with sudden onset of abdominal pain after dinner, about 7 p.m. This was described initially in the left lower quadrant, although when I saw him, it was in the lower abdomen. He was given IV hydromorphone several repeated doses and IV morphine. He has a history of diverticulitis in the past, several occurrences; however, CT scan of the abdomen and pelvis did not show any evidence of diverticulitis. There was mild distension of the small bowel without dilatation or transition point of uncertain clinical significance. He had no emesis or distension and I do not think he had ileus or even partial obstruction. The appendix was visualized on the scan. The patient had oral contrast for the study. His white count was elevated at 13.6. It came down to 10.2 the next morning. He had not received any antibiotics at all at that time. I did start him on antibiotics which he had one day; however, taking into account a CRP of 1.43 on admission, the abrupt onset of the pain, and the fact that the pain was of different character and location than his previous episodes of diverticulitis, I think it might be best to observe him off antibiotics for a period of time. On the day of discharge, he said the pain was down to level of 5. He seemed much more comfortable. There was minimal if any tenderness. I have transmitted a prescription for 10 oxycodone. He will make an appointment with his PCP within 1 week. DISCHARGE DIAGNOSES: 1. Abdominal pain with a history of diverticulitis in the past. 2. Tobacco abuse. 3. Asthma. DISCHARGE MEDICATIONS: 1. Oxycodone 5 mg every 4 hours p.r.n., dispensed 10. 2. Albuterol inhaler 2 puffs every 4 hours p.r.n. 3. Ibuprofen 800 mg every 6 hours p.r.n. [id number]/[facility] #: [id number] [facility]
== END 2016-09-15 15:15 | disposition home or self-care (01) ==
LOC: ED 20:57 → SSU 09-14 02:25 → INTOOBSV 09-15 07:56 → OBSVTOIN 09-15 07:56
PROVIDERS: ADMIT Hospitalist; ATTEND Internal Medicine
DX: R10.32 Left lower quadrant pain (principal); J45.909 Unspecified asthma, uncomplicated; I10 Essential (primary) hypertension; K57.90 Diverticulosis of intestine, part unspecified, without perforation or abscess without bleeding; F17.210 Nicotine dependence, cigarettes, uncomplicated; Z88.0 Allergy status to penicillin; Z79.899 Other long term (current) drug therapy
CPT/HCPCS: 36415; 74000; 74177; 80053; 81003; 83605; 83690; 85025; 86140; 94760; 96365; 96366; 96367; 96375; 96376; 99284; A9270-GY; G0378; J0744; J1170; J2270; J2405; Q9967

== ENCOUNTER 2016-12-27 12:35 | Emergency (ER) | payer OTHER ==
[2016-12-27 13:12] VITALS: BP 130/83
--- NOTE | 2016-12-27 13:26 | UC ---
Abdominal Pain Male HPI - HPI Summary HPI Summary: SUDDEN ONSET OF LLQ ABDOMINAL PAIN YESTERDAY. HAS H/O DIVERTICULITIS BUT THIS FEELS DIFFERENT. DENIES NAUSEA. PAIN IS RADIATING TO LEFT LOW BACK. LAST BM THIS MORNING WAS HARD. NO FEVER. OF NOTE PT WAS ADM[place] [facility] [place] FOR INTRACTABLE ABDOMINAL PAIN. - History of Current Complaint Chief Complaint: UCGU Stated Complaint: ABD PAIN Time Seen by Provider: 12/27/16 13:14 Hx Obtained From: Patient Onset/Duration: Sudden Onset, Lasting Days - 1 DAY, Still Present Timing: Constant Severity Initially: Moderate Severity Currently: Severe Pain Intensity: 10 Pain Scale Used: 0-10 Numeric Location: Discrete At: LLQ Radiates: Yes Radiates to: Flank Character: Sharp Aggravating Factor(s): Nothing Alleviating Factor(s): Nothing Associated Signs And Symptoms: Positive: Back Pain. Negative: Diaphoresis, Fever, Chest Pain, Dizzy, Nausea, Vomiting, Diarrhea - Allergies/Home Medications Allergies/Adverse Reactions: Allergies Allergy/AdvReac Type Severity Reaction Status Date / Time Penicillins [PCN] Allergy Intermediate Rash Verified 12/27/16 13:02 PMH/Surg Hx/FS Hx/Imm Hx Respiratory History: Asthma GI/ History: Diverticulitis - Surgical History Surgical History: Yes Surgery Procedure, Year, and Place: Anal abscess drainage 89, 04, tonsillectomy , colonoscopy - Family History Known Family History: Positive: Cardiac Disease - PATERNAL UNCLE, Other - CANCER - Social History Alcohol Use: Occasionally Alcohol Amount: a few beers daily Substance Use Type: None Substance Use Comment - Amount & Last Used: pain killers - migraines Smoking Status (MU): Light Every Day Tobacco Smoker Type: Cigarettes Amount Used/How Often: 3-4 cigs daily Length of Time of Smoking/Using Tobacco: 15 yrs Have You Smoked in the Last Year: Yes Household Exposure Type: Cigarettes - Immunization History Most Recent Influenza Vaccination: 2013 Most Recent Tetanus Shot: 08/27/14 Most Recent Pneumonia Vaccination: 2013 Review of Systems Constitutional: Negative Respiratory: Negative Cardiovascular: Negative Gastrointestinal: Abdominal Pain All Other Systems Reviewed And Are Negative: Yes Physical Exam Triage Information Reviewed: Yes Appearance: Well-Appearing, Well-Nourished, Pain Distress - MODERATE Vital Signs: Initial Vital Signs Temp 97.6 F 12/27/16 13:03 Pulse 76 12/27/16 13:03 Resp 20 10/20/17 13:03 BP 130/83 12/27/16 13:03 Pulse Ox 100 12/27/16 13:03 Vital Signs Reviewed: Yes Eyes: Positive: Conjunctiva Clear ENT: Positive: Hearing grossly normal Neck: Positive: Supple Respiratory: Positive: No respiratory distress, No accessory muscle use Cardiovascular: Positive: Pulses Normal Abdomen Description: Positive: Soft, CVA Tenderness (L), Guarding, Other: - TTP LLQ. NO REBOUND OR RIGIDITY. Negative: CVA Tenderness (R), Distended Bowel Sounds: Positive: Present Musculoskeletal: Positive: No Edema Neurological: Positive: Alert Psychological: Positive: Age Appropriate Behavior Skin: Negative: rashes Abd Pain Male Course/Dx - Course Course Of Treatment: PT DECLINES AMBULANCE - Differential Dx/Clinical Impression Provider Diagnoses: LLQ PAIN Discharge - Discharge Plan Condition: Stable Disposition: OTHER Discharge Disposition Comment: TO [facility] BY PRIVATE CAR Patient Education Materials: Abdominal Pain (ED) Referrals: Colin Jewell MD [Primary Care Provider] - If Needed Additional Instructions: GO DIRECTLY TO THE [facility] FROM HERE FOR FURTHER EVALUATION.
== END 2016-12-27 13:30 ==
LOC: UCEAST 12:35
DX: R10.32 Left lower quadrant pain (principal); F17.210 Nicotine dependence, cigarettes, uncomplicated; Z88.0 Allergy status to penicillin; J45.909 Unspecified asthma, uncomplicated
CPT/HCPCS: 99212; G0463

== ENCOUNTER 2016-12-27 13:52 | Emergency (ER) | payer OTHER ==
[2016-12-27] MEDS ORDERED: Ciprofloxacin IV(*) 400 MG in D5W 250 ML BAG* 160 ML IVPB ONE (14:31)
[2016-12-27] MEDS ORDERED: Ondansetron ODT TAB* 4 MG PO ONE (14:31)
[2016-12-27] MEDS ORDERED: NS 0.9% 1000 ML* 1,000 ML IV ONE (14:33)
[2016-12-27] MEDS ORDERED: fentaNYL* 50 MCG/ML 2 ML VIAL (100 MCG VIAL) IV SLOW PU ONE (14:34)
[2016-12-27 15:14] LABS: Hematocrit 40 % (42-52); Hemoglobin 13.8 g/dl (14.0-18.0); Mean Corpuscular HGB Conc 34 g/dl (31-36); Mean Corpuscular Hemoglobin 33 pg (27-31); Mean Corpuscular Volume 95 fL (80-94); Mean Platelet Volume 8 um3 (7.4-10.4); Red Blood Count 4.22 10^6/ul (4.0-5.4); Red Cell Distribution Width 14 % (10.5-15); White Blood Count 10.3 10^3/ul (3.5-10.8)
[2016-12-27 15:40] LABS: Albumin 3.7 g/dL (3.2-5.2); BUN/Creatinine Ratio 19.1 (8-20); C Reactive Protein 75.08 mg/L (< 5.00); Calcium 8.8 mg/dL (8.6-10.3); EGFR African American 158.1 (>60); EGFR Non-African American 122.9 (>60); Globulin 2.9 g/dL (2-4); Potassium 3.9 mmol/L (3.5-5.0); Total Bilirubin 0.8 mg/dL (0.2-1.0); Total Protein 6.6 g/dL (6.4-8.9)
[2016-12-27] MEDS ORDERED: Ciprofloxacin 400MG IVPREMIX(* 400 MG/200 ML BAG IVPB ONE (16:00)
[2016-12-27] MEDS ORDERED: Iohexol 300* (CONTRAST) 10 ML SDV IV ONE (16:01)
[2016-12-27 16:32] VITALS: BP 140/90
--- NOTE | 2016-12-27 16:47 | RAD ---
INDICATION: Left lower quadrant pain COMPARISON: CT abdomen pelvis September 13, 2016 TECHNIQUE: Axial source images were obtained from the hemidiaphragms to the symphysis pubis following administration of oral and intravenous contrast. 131 mL Omnipaque 300 was utilized. Coronal and sagittal reconstructed images were acquired. Lung bases: The lung bases are clear. Liver: The liver is normal in size. There are no masses. There is no ductal dilatation. Gallbladder: There are no calcified gallstones. There is no evidence of wall thickening or pericholecystic fluid. Spleen: The spleen is normal in size. There are no masses. Pancreas: There is no focal pancreatic mass or ductal dilatation. Adrenal glands: There is no evidence of adrenal mass. Kidneys: The kidneys are normal in size and position. There are prompt nephrograms and there is prompt excretion bilaterally. There are no renal parenchymal masses. There is no evidence of nephrolithiasis. Adenopathy: There is no evidence of adenopathy by size criteria. Fluid collections: There are no free or localized fluid collections. Vessels:There are no significant atherosclerotic changes involving the aorta. There is no focal aneurysm. The iliac vessels are normal in caliber. The IVC appears normal. GI tract: The upper GI tract to include the terminal ileum is normal. The ileocecal valve, appendix, and cecum are normal. There is diffuse focal wall edema in a segment of sigmoid colon with perienteric inflammatory change. There are no findings of obstruction or perforation. These are new findings. Pelvic organs: The prostate and seminal vesicles appear normal Bladder: There are no bladder masses. Abdominal and pelvic soft tissues: The extraperitoneal abdominal and pelvic soft tissues appear normal.. Osseous structures: There are no acute osseous findings. Other: None IMPRESSION: CT FINDINGS OF ACUTE SIGMOID COLON DIVERTICULITIS
[2016-12-27] MEDS ORDERED: metroNIDAZOLE TAB* 250 MG PO ONE (17:06)
[2016-12-27] MEDS ORDERED: oxyCODONE/Acetamin 5/325 MG* TAB PO ONE (17:06)
--- NOTE | 2016-12-29 08:17 | ED ---
Pop Sanchez Angela, scribed for Arturo Yeboah MD on 12/27/16 at 1432 . Abdominal Pain/Male - HPI Summary HPI Summary: This pt is a 51 y/o male presenting to [facility] c/o non-radiating LLQ abdominal pain x2 days. Pt reports he has a history of diverticulitis. He notes he has diarrhea and some blood in the rectum. Pt currently rates his pain 10/10 in severity. He denies nausea, vomiting, fever, constipation. Pt states his last flare up was in September 2016. Allergies: penicillin, morphine (reaction: itching). - History of Current Complaint Chief Complaint: EDAbdPain Stated Complaint: ABD PAIN Time Seen by Provider: 12/27/16 14:16 Hx Obtained From: Patient Onset/Duration: Lasting Days, Still Present Timing: Constant, Lasting Days Severity Currently: Severe Pain Intensity: 10 Pain Scale Used: 0-10 Numeric Location: Discrete At: LLQ Radiates: No Aggravating Factor(s): Nothing Alleviating Factor(s): Nothing Associated Signs And Symptoms: Positive: Diarrhea, Other - blood in rectum. Negative: Fever, Constipation, Nausea, Vomiting - Allergies/Home Medications Allergies/Adverse Reactions: Allergies Allergy/AdvReac Type Severity Reaction Status Date / Time Penicillins [PCN] Allergy Intermediate Rash Verified 12/27/16 13:02 PMH/Surg Hx/FS Hx/Imm Hx Endocrine/Hematology History: Denies: Hx Diabetes, Hx Thyroid Disease Cardiovascular History: Denies: Hx Hypertension Respiratory History: Reports: Hx Asthma - use inhaler and neb Denies: Hx Chronic Obstructive Pulmonary Disease (COPD) Comment Only: Other Respiratory Problems/Disorders - deenies need for written literature to quit GI History: Reports: Hx Diverticulosis, Other GI Disorders - diveriticulitis Denies: Hx Ulcer History: Denies: Hx Dialysis, Hx Renal Disease Musculoskeletal History: Reports: Hx Back Problems - Back Injury 2003, Other Musculoskeletal History - Back pain Sensory History: Reports: Hx Contacts or Glasses Denies: Hx Hearing Aid Opthamlomology History: Reports: Hx Contacts or Glasses Neurological History: Reports: Hx Migraine, Other Neuro Impairments/Disorders - HX SUBDURAL HEMATOMA UNKNOWN DATE - Cancer History Cancer Type, Location and Year: family hx of cancer. - Surgical History Surgery Procedure, Year, and Place: Anal abscess drainage , 04, tonsillectomy , colonoscopy Hx Anesthesia Reactions: No Infectious Disease History: No Infectious Disease History: Denies: Hx Clostridium Difficile, Hx Hepatitis, Hx Human Immunodeficiency Virus (HIV), Hx of Known/Suspected MRSA, Hx Shingles, Hx Tuberculosis, Hx Known/ Suspected VRE, Hx Known/Suspected VRSA, History Other Infectious Disease, Traveled Outside the [place] in Last 30 Days - Family History Known Family History: Positive: Cardiac Disease - PATERNAL UNCLE, Other - CANCER - Social History Alcohol Use: Occasionally Alcohol Amount: a few beers daily Hx Substance Use: No Substance Use Type: Reports: None Substance Use Comment - Amount & Last Used: pain killers - migraines Hx Tobacco Use: Yes Smoking Status (MU): Light Every Day Tobacco Smoker Type: Cigarettes Amount Used/How Often: 3-4 cigs daily Length of Time of Smoking/Using Tobacco: 15 yrs Have You Smoked in the Last Year: Yes Review of Systems Negative: Fever, Chills Eyes: Negative ENT: Negative Cardiovascular: Negative Positive: Abdominal Pain, Diarrhea. Negative: Vomiting, Nausea, Other - constipation Musculoskeletal: Negative Negative: Headache All Other Systems Reviewed And Are Negative: Yes Physical Exam - Summary Physical Exam Summary: VITAL SIGNS: Reviewed. GENERAL: Patient is a well-developed and nourished male who is lying comfortable in the stretcher. Patient is not in any acute respiratory distress. HEAD AND FACE: Normocephalic and atraumatic. EYES: PERRLA, EOMI x 2, No injected conjunctiva. EARS: Hearing grossly intact. Ear canals and tympanic membranes are WNL. MOUTH: Oropharynx within normal limits. NECK: Supple, trachea is midline, no adenopathy, no JVD. CHEST: Symmetric, no tenderness at palpation LUNGS: Clear to auscultation bilaterally. No wheezing or crackles. CVS: RRR, S1 and S2 present, no murmurs or gallops appreciated. ABDOMEN: Soft. Pt has LLQ tenderness with some guarding. No signs of distention. Positive bowel sounds. No rebound and no masses palpated. No abdominal bruit or pulsations. EXTREMITIES: FROM in all major joints, no edema, no cyanosis or clubbing. NEURO: Alert and oriented x 3. No acute neurological deficits. Speech is normal. SKIN: Dry and warm Triage Information Reviewed: Yes Vital Signs On Initial Exam: Initial Vitals Temp Pulse Resp BP Pulse Ox 97.9 F 73 20 127/84 100 12/27/16 14:02 12/27/16 14:02 12/27/16 14:02 12/27/16 14:02 12/27/16 14:02 Vital Signs Reviewed: Yes Diagnostics - Vital Signs Vital Signs Temp Pulse Resp BP Pulse Ox 12/27/16 14:02 97.9 F 73 20 127/84 100 - Laboratory Lab Results: Lab Results 12/27/16 12/27/16 Range/Units 15:07 15:07 WBC 10.3 (3.5-10.8) 10^3/ul RBC 4.22 (4.0-5.4) 10^6/ul Hgb 13.8 L (14.0-18.0) g/dl Hct 40 L (42-52) % MCV 95 H (80-94) fL MCH 33 H (27-31) pg MCHC 34 (31-36) g/dl RDW 14 (10.5-15) % Plt Count 233 (150-450) 10^3/ul MPV 8 (7.4-10.4) um3 Neut % (Auto) 59.5 (38-83) % Lymph % (Auto) 26.1 (25-47) % [place] % (Auto) 11.3 H (1-9) % Eos % (Auto) 2.5 (0-6) % Baso % (Auto) 0.6 (0-2) % Absolute Neuts (auto) 6.1 (1.5-7.7) 10^3/ul Absolute Lymphs (auto) 2.7 (1.0-4.8) 10^3/ul Absolute Monos (auto) 1.2 H (0-0.8) 10^3/ul Absolute Eos (auto) 0.3 (0-0.6) 10^3/ul Absolute Basos (auto) 0.1 (0-0.2) 10^3/ul Absolute Nucleated RBC 0.01 10^3/ul Nucleated RBC % 0 Sodium 134 (133-145) mmol/L Potassium 3.9 (3.5-5.0) mmol/L Chloride 104 (101-111) mmol/L Carbon Dioxide 24 (22-32) mmol/L Anion Gap 6 (2-11) mmol/L BUN 13 (6-24) mg/dL Creatinine 0.68 (0.67-1.17) mg/dL Est GFR ( Amer) 158.1 (>60) Est GFR (Non-Af Amer) 122.9 (>60) BUN/Creatinine Ratio 19.1 (8-20) Glucose 95 (70-100) mg/dL Calcium 8.8 (8.6-10.3) mg/dL Total Bilirubin 0.80 (0.2-1.0) mg/dL AST 15 (13-39) U/L ALT 17 (7-52) U/L Alkaline Phosphatase 59 (34-104) U/L C-Reactive Protein 75.08 H (< 5.00) mg/L Total Protein 6.6 (6.4-8.9) g/dL Albumin 3.7 (3.2-5.2) g/dL Globulin 2.9 (2-4) g/dL Albumin/Globulin Ratio 1.3 (1-3) Amylase 31 (29-103) U/L Lipase 25 (11.0-82.0) U/L Result Diagrams: 12/27/16 15:07 12/27/16 15:07 Lab Statement: Any lab studies that have been ordered have been reviewed, and results considered in the medical decision making process. - CT Abdomen/pelvis CT CT Interpretation: Positive (See Comments) - IMPRESSION: CT findings of acute sigmoid colon diverticulitis. ED physician has reviewed this radiology report and agrees. CT Interpretation Completed By: Radiologist Abdominal Pain Fem Course/Dx - Course Assessment/Plan: This pt is a 51 y/o male presenting to [facility] c/o non-radiating LLQ abdominal pain x2 days. Pt reports he has a history of diverticulitis. He notes he has diarrhea and some blood in the rectum. Pt currently rates his pain 10/10 in severity. He denies nausea, vomiting, fever, constipation. Pt states his last flare up was in September 2016. Allergies: penicillin, morphine (reaction: itching). Test results without any significant abnormalities, CRP of 75. Abdomen/pelvis CT shows CT findings of acute sigmoid colon diverticulitis. In the ED course, the pt was given IV fluids, fentanyl for the pain, Ciprofloxacin and Flagyl for acute diverticulitis. After these medications, the pt has significantly improved. He will be discharged home with follow up from PCP. Pt is hemodynamically stable, alert and oriented x3. - Diagnoses Differential Diagnosis/HQI/PQRI: Bowel Obstruction, Constipation, Diverticulitis , Pancreatitis Provider Diagnoses: Diverticulitis Discharge - Discharge Plan Condition: Stable Disposition: HOME Prescriptions: Ciprofloxacin TAB* [Cipro 500 MG TAB*] 500 mg PO BID #20 tab Metronidazole [Flagyl 500 MG TAB] 500 mg PO TID #30 tab Patient Education Materials: Diverticulitis (ED) Referrals: Colin Jewell MD [Primary Care Provider] - Additional Instructions: Please follow up with your primary care provider. The documentation as recorded by the Pop whyte Angela accurately reflects the service I personally performed and the decisions made by Obinna chavez Walter, MD.
== END 2016-12-27 17:49 | disposition home or self-care (01) ==
LOC: ED 13:52
DX: K57.32 Diverticulitis of large intestine without perforation or abscess without bleeding (principal); R19.7 Diarrhea, unspecified; J45.909 Unspecified asthma, uncomplicated; G43.909 Migraine, unspecified, not intractable, without status migrainosus; F17.210 Nicotine dependence, cigarettes, uncomplicated
CPT/HCPCS: 36415; 74177; 80053; 82150; 83690; 85025; 86140; 96365; 96375; 99283; A9270-GY; J0744; J3010; Q9967

== ENCOUNTER 2018-05-05 08:12 | Emergency (ER) | payer OTHER ==
[2018-05-05 08:22] VITALS: BP 149/84
[2018-05-05] MEDS ORDERED: Albuterol 2.5 MG/3 ML NEB.SOL* (0.083%) INH ONE (08:24)
[2018-05-05 08:43] LABS: Influenza A Molecular NEGATIVE (Negative); Influenza B Molecular NEGATIVE (Negative)
--- NOTE | 2018-05-05 08:53 | UC ---
General HPI - HPI Summary HPI Summary: Here with Girlfriend. Cough and congestion started about a week ago. [place] so bad he quit smoking - normally smokes 1 pack over 3 days. Had an albuterol inhaler but ran out last week. Persistent cough with sputum and pleuritic pain. Also with left lower quadrant pain which he gets when he has diverticulitis. Diarrhea yesterday. No BM today. Low grade temp: 100. Is tolerating liquids. +Sick contacts. PMHx; Diverticulitis, asthma, Meds: reviewed - History of Current Complaint Chief Complaint: UCRespiratory Stated Complaint: COUGH Time Seen by Provider: 05/05/18 08:24 Pain Intensity: 9 - Allergy/Home Medications Allergies/Adverse Reactions: Allergies Allergy/AdvReac Type Severity Reaction Status Date / Time Penicillins Allergy Rash Verified 05/05/18 08:22 Home Medications: Home Medications Albuterol 2.5MG/3ML (0.083%)* [Ventolin 2.5 MG/3 ML NEB.ALISIA*] 2.5 mg INH Q4H PRN 05/05/18 [History Confirmed 05/05/18] PMH/Surg Hx/FS Hx/Imm Hx Previously Healthy: No Respiratory History: Asthma GI/ History: Diverticulitis - Surgical History Surgical History: Yes Surgery Procedure, Year, and Place: Anal abscess drainage , , tonsillectomy , colonoscopy - Family History Known Family History: Positive: Cardiac Disease - PATERNAL UNCLE, Other - CANCER - Social History Alcohol Use: Daily Alcohol Amount: a few beers daily Substance Use Type: None Substance Use Comment - Amount & Last Used: pain killers - migraines Smoking Status (MU): Former Smoker Type: Cigarettes Amount Used/How Often: 3-4 cigs daily Length of Time of Smoking/Using Tobacco: 1 week Have You Smoked in the Last Year: Yes Household Exposure Type: Cigarettes - Immunization History Most Recent Influenza Vaccination: 2013 Most Recent Tetanus Shot: 08/27/14 Most Recent Pneumonia Vaccination: 2013 Review of Systems All Other Systems Reviewed And Are Negative: Yes Constitutional: Positive: Fever, Chills ENT: Positive: Sore Throat, Sinus Congestion Respiratory: Positive: Shortness Of Breath, Cough Gastrointestinal: Positive: Abdominal Pain, Diarrhea Physical Exam Triage Information Reviewed: Yes Appearance: Other: - mildly ill appearing Vital Signs: Initial Vital Signs Temp 99.7 F 05/05/18 08:16 Pulse 95 05/05/18 08:16 Resp 16 05/05/18 08:16 BP 149/84 05/05/18 08:16 Pulse Ox 94 05/05/18 08:16 Vital Signs Reviewed: Yes Eyes: Positive: Conjunctiva Clear ENT: Positive: Pharyngeal erythema, Nasal congestion Neck exam: Normal Neck: Positive: Supple, Nontender Respiratory: Positive: Other: - Diminished breath sounds, b/l expiratory wheezing Cardiovascular: Positive: RRR, No Murmur Abdomen Description: Positive: Soft, Other: - LLQ tenderness Diagnostics - Radiology CXR Radiology Interpretation Completed By: Radiologist Summary of Radiographic Findings: left middle lobe PNA Course/Dx - Course Course Of Treatment: This is a 52 yr old with PMHx of asthma and smoker who presents with one week of cough/wheeze and low grade temp. Assessment. Nontoxic appearing. Albuterol neb given. CXR: Flu Negative. Abdominal pain. Possible early diverticulitis. Plan. Use albuterol inhaler every 4 hours while sick then as needed. Start medrol dose pack as prescribed. Tessalon caps as needed for cough. Continue to encourage fluids. Recommend follow up CXR in 2-3 months once symptoms have resolved. Regarding abdominal pain. Concern for early diverticulitis. Recommend starting Levaquin and Flagyl as prescribed. Continue liquid or soft diet if tolerated. Recommend follow up in 2-3 days for resolution of symptoms. If symptoms persist or worsen, including chest pain and/or abdominal pain return to urgent care or the ER - Diagnoses Provider Diagnosis: Asthma exacerbation, Diverticulitis, Pneumonia Discharge - Sign-Out/Discharge Documenting (check all that apply): Patient Departure All imaging exams completed and their final reports reviewed: Yes - Discharge Plan Condition: Fair Disposition: HOME Prescriptions: Albuterol HFA INHALER* [Ventolin HFA Inhaler*] 2 puff INH Q4H PRN #1 mdi PRN Reason: Cough Levofloxacin TAB* [Levaquin TAB*] 750 mg PO DAILY #7 tab methylPREDNISolone [Medrol] 4 mg PO .SEE [place] INSTRUCTION #1 tab.ds.pk metroNIDAZOLE [Flagyl 500 MG TAB] 500 mg PO TID #21 tab Spacer/Holding Chamber (NF) [Easivent CHAMBER (NF)] 1 applic INH Q4HR PRN #1 device PRN Reason: Cough Patient Education Materials: Asthma (ED), Diverticulitis (ED) Referrals: Colin Jewell MD [Primary Care Provider] - Additional Instructions: Use albuterol inhaler every 4 hours while sick then as needed The levaquin for diverticulitis will also treat the pneumonia Start medrol dose pack as prescribed Tessalon caps as needed for cough Continue to encourage fluids Recommend follow up CXR in 2-3 months once symptoms have resolved Regarding abdominal pain Concern for early diverticulitis Recommend starting Levaquin and Flagyl as prescribed Continue liquid or soft diet if tolerated Recommend follow up in 2-3 days with primary care physician for resolution of symptoms Any worsening Chest pain, shortness of breath or abdominal pain return to ER - Billing Disposition and Condition Condition: FAIR Disposition: Home
== END 2018-05-05 09:36 | disposition home or self-care (01) ==
LOC: UCEAST 08:12
DX: J45.901 Unspecified asthma with (acute) exacerbation (principal); J18.9 Pneumonia, unspecified organism; K57.92 Diverticulitis of intestine, part unspecified, without perforation or abscess without bleeding; Z87.891 Personal history of nicotine dependence; Z88.0 Allergy status to penicillin
CPT/HCPCS: 71046; 99212; G0463

== ENCOUNTER 2018-09-20 13:22 | Emergency (ER) | payer OTHER ==
--- NOTE | 2018-09-20 14:05 | UC ---
Hand/Wrist HPI - HPI Summary HPI Summary: They Mr. Witt punched a metal door yesterday. He is complaining of pain and swelling to his hand. - History Of Current Complaint Stated Complaint: HAND INJURY Time Seen by Provider: 09/20/18 13:50 Hx Obtained From: Patient Onset/Duration: Sudden Onset Severity Initially: Moderate Severity Currently: Moderate Character Of Pain: Aching Aggravating Factor(s): Movement, Lifting Alleviating Factor(s): Nothing Associated Signs And Symptoms: Positive: Swelling - Allergies/Home Medications Allergies/Adverse Reactions: Allergies Allergy/AdvReac Type Severity Reaction Status Date / Time Penicillins Allergy Rash Verified 09/20/18 14:13 PMH/Surg Hx/FS Hx/Imm Hx Previously Healthy: Yes Respiratory History: Asthma - Surgical History Surgical History: Yes Surgery Procedure, Year, and Place: Anal abscess drainage 89, 04, tonsillectomy , colonoscopy - Family History Known Family History: Positive: Cardiac Disease - PATERNAL UNCLE, Other - CANCER - Social History Alcohol Use: Daily Alcohol Amount: a few beers daily Substance Use Type: None Substance Use Comment - Amount & Last Used: pain killers - migraines Smoking Status (MU): Former Smoker Type: Cigarettes Amount Used/How Often: 3-4 cigs daily Length of Time of Smoking/Using Tobacco: 1 week Have You Smoked in the Last Year: Yes Household Exposure Type: Cigarettes - Immunization History Most Recent Influenza Vaccination: 2013 Most Recent Tetanus Shot: 08/27/14 Most Recent Pneumonia Vaccination: 2013 Review of Systems All Other Systems Reviewed And Are Negative: Yes Motor: Positive: Decreased ROM Neurovascular: Positive: Negative Musculoskeletal: Positive: Decreased ROM, Edema Neurological: Positive: Negative Physical Exam - Summary Physical Exam Summary: Is nontoxic in appearance with stable vitals. His right hand is swollen over the fourth and fifth MPJs. There is slight abrasion over the fifth MPJ dorsally. Neurovascular and motor are intact. Triage Information Reviewed: Yes Appearance: Well-Appearing Vital Signs Reviewed: Yes Musculoskeletal Exam: Other - His right hand is swollen over the fourth and fifth MPJs. There is slight abrasion over the fifth MPJ dorsally. Neurovascular and motor are intact. Neurological Exam: Normal Procedures - Splinting Right Upper Extremity Location: right ulnar gutter Hand-Made Type: orthoglass Splint: ulnar Diagnostics - Radiology right hand Radiology Interpretation Completed By: Radiologist Summary of Radiographic Findings: Boxer's Fracture Hand/Wrist Course/Dx - Course Course Of Treatment: He has a fifth metacarpal fracture that is only slightly angulated. I placed him in an ulnar gutter splint. He does have some abrasions. These are not deep and I'm going to prophylactically use some Keflex. He guarantees me that this was a metal door and not teeth. Program follow-up this week with orthopedic and some pain medication.. - Differential Dx/Diagnosis Provider Diagnosis: Fx metacarpal Discharge - Sign-Out/Discharge Documenting (check all that apply): Patient Departure All imaging exams completed and their final reports reviewed: Yes - Discharge Plan Condition: Stable Disposition: HOME Patient Education Materials: Boxer Fracture (ED) Referrals: Colin Jewell MD [Primary Care Provider] - Lawrence Velasquez MD [Medical Doctor] - Additional Instructions: Call tomorrow for an appointment with Dr. Velasquez this week. - Billing Disposition and Condition Condition: STABLE Disposition: Home
[2018-09-20 14:13] VITALS: BP 132/92
== END 2018-09-20 15:05 | disposition home or self-care (01) ==
LOC: UCEAST 13:22
DX: S62.336A Displaced fracture of neck of fifth metacarpal bone, right hand, initial encounter for closed fracture (principal); W22.09XA Striking against other stationary object, initial encounter; Y92.9 Unspecified place or not applicable; Z87.891 Personal history of nicotine dependence
CPT/HCPCS: 99212; G0463

== ENCOUNTER → 2018-10-01 10:57 | Day surgery (SDC) | payer OTHER ==
[~2018-10-01 10:57] MED LIST: Acetaminophen TAB* 325 MG ONE; Acetaminophen TAB* 325 MG PO ONE; Buffered Lidocaine 1% SYRIN* 1 ML/SYRINGE INTRADERM ONE; Bupivacaine 0.25% SDV PF* 10 ML VIAL INJ ONE; Clindamycin 900 MG IVPREMIX(* 900 MG/50 ML SDV IV ONE; Dexamethasone IV* 4 MG/ML 1 ML (4 MG) ONE; DiMENhydriNATE IV* 50 MG/ML VIAL IV PUSH PRN; Famotidine IV* 10 MG/ML 2 ML (20 mg) ONE; HYDROcodone/ACETAMIN 5-325 MG* 1 TAB ONE; Ketorolac INJ* 30 MG/ML 1 ML VIAL ONE; Lactated Ringers 1000 ML Bag* 1,000 ML IV SCH; Levalbuterol 0.63MG/3ML NEB* UNIT OF USE INH PRN; Lidocaine 2% PF * 5 ML VIAL ONE; Midazolam* 1 MG/ML 2 ML VIAL (2 MG) ONE; Naloxone* 0.4 MG/ML 1 ML VIAL IV PRN; Ondansetron INJ* 2 MG/ML VIAL IV PRN; Propofol* 10 MG/ML 20 ML BTL ONE; diPHENhydraMINE IV* 50 MG/ML 1 ml VIAL (BENADRYL) IV PRN; diPHENhydraMINE IV* 50 MG/ML 1 ml VIAL (BENADRYL) ONE; fentaNYL* 50 MCG/ML 2 ML VIAL (100 MCG VIAL) ONE
[2018-10-01] MEDS: fentaNYL* 50 MCG/ML 2 ML VIAL (100 MCG VIAL) IV PRN ×4 (14:33→15:04)
--- NOTE | 2018-10-01 15:35 | OP ---
DATE OF OPERATION: 10/01/18 - [facility] DATE OF : 65 SURGEON: Casimiro Perrin MD USABILITY SPECIALIST: CELENA Cotton ANESTHESIOLOGIST: Dr. Perez. ANESTHESIA: General. PRE-OP DIAGNOSIS: Displaced right fifth metacarpal distal shaft/neck fracture. POST-OP DIAGNOSIS: Displaced right fifth metacarpal distal shaft/neck fracture. OPERATIVE PROCEDURE: Closed reduction and percutaneous fixation of right fifth metacarpal fracture. INDICATIONS: Adelso has a rotated and angulated distal fifth metacarpal fracture. We had talked about treatment options. He had wanted to proceed. ESTIMATED BLOOD LOSS: 1 mL. COMPLICATIONS: None. FINDINGS: See above and below. DESCRIPTION OF PROCEDURE: Adelso was seen in the preoperative holding area. The correct side, site, and procedure were identified. We came back to the operating room. The arm was prepped and draped in the usual fashion. A time- out was performed. The arm was exsanguinated and the tourniquet was inflated to 250 [address] attempted to place a 0.062 K-wire from distal to proximal, however, it did not seem like it was going to hold very well the reduction and so I went ahead and backed that out. I then made a 3 mm incision about a centimeter proximal to the base of the fifth metacarpal in the mid axial line ulnarly. I spread down to the bone with the mosquitos and then used a larger Steinmann pin to open up a cortical window on the ulnar aspect of the fifth metacarpal base. A larger diameter K-wire was then bent on the end, and a T-handle lore was used to advance that up to the fracture site. I then close reduced the fracture and the wire was passed up beyond to the fracture site. I confirmed the reduction on mini C-arm fluoroscopy. Once we had it looking just right, I went ahead and impacted the wire distally just another millimeter or so with the mallet up to the subchondral bone. Everything was looking was very good and holding very nicely. We bent and clipped the wire. I placed one 4-0 nylon stitch around the wire. 0.25% plain Marcaine was infiltrated. The wire was dressed with Xeroform, 4x4's, and then sterile Webril and then ulna gutter splint was applied in protected position. Tourniquet was deflated and he was taken to the recovery room in stable condition. [id number]/[facility] #: [id number] MARCELO
[2018-10-01 16:16] VITALS: BP 162/107
== END | disposition home or self-care (01) ==
LOC: OR 10:57
PROVIDERS: ATTEND Orthopaedic Surgery Hand Surgery
DX: S62.336A Displaced fracture of neck of fifth metacarpal bone, right hand, initial encounter for closed fracture (principal); J45.909 Unspecified asthma, uncomplicated; F17.210 Nicotine dependence, cigarettes, uncomplicated; W22.8XXA Striking against or struck by other objects, initial encounter; Y92.9 Unspecified place or not applicable; Z88.0 Allergy status to penicillin
CPT/HCPCS: 76000; A9270-GY; C1776; J1100; J1200; J1885; J2250; J2704; J3010; J3490